=== PATIENT | female | born 1980 | race African-American/Black ===

== ENCOUNTER 2017-10-12 02:23 | Emergency (ER) | payer SELFPAY ==
[~2017-10-12] VITALS: Ht 167.6 cm; Wt 62.0 kg
[2017-10-12] MEDS ORDERED: IBUPROFEN 600MG TABLET PO ONE (07:30)
[2017-10-12 09:58] VITALS: BP 160/110
== END 2017-10-12 10:15 | disposition home or self-care (01) ==
LOC: ER 02:23
DX: J02.8 Acute pharyngitis due to other specified organisms (principal); B97.89 Other viral agents as the cause of diseases classified elsewhere; R59.1 Generalized enlarged lymph nodes; Z98.890 Other specified postprocedural states
CPT/HCPCS: 81025; 87430; 99283

== ENCOUNTER 2018-12-05 02:57 | Inpatient (IN) | payer MEDICAID ==
[~2018-12-05] VITALS: Ht 152.4 cm; Wt 63.5 kg
[2018-12-05] MEDS ORDERED: FUROSEMIDE 40MG/4ML VIAL IV ONE (03:45)
[2018-12-05 03:54] LABS: BASOPHILS % 2.2 % (0.0-2.0); EOSINOPHILS % 0.7 % (0.0-5.0); HEMATOCRIT. 33.8 % (36.0-48.0); HEMOGLOBIN. 10.2 g/dL (12.0-16.0); LYMPHOCYTES % 8.5 % (20.0-50.0); MEAN CORPUSCULAR HEMOGLOBIN 17.9 pg (28.0-32.0); MEAN CORPUSCULAR VOLUME 59.1 fL (81.0-99.0); MEAN PLATELET VOLUME 8.6 fl (7.4-10.4); MONOCYTES % 8.7 % (2.0-8.0); NEUTROPHILS % 79.9 % (40.0-76.0); PLATELET 292 x1000/uL (130-400); RED BLOOD CELL COUNT 5.72 mill/uL (4.2-5.4); RED CELL DISTRIBUTION WIDTH 22.8 % (11.6-14.6)
[2018-12-05 04:00] LABS: CHLORIDE 104 mEq/L (98-107)
[2018-12-05 05:25] LABS: PLATELET ESTIMATE NORMAL
[2018-12-05] MEDS ORDERED: LABETALOL 5MG/ML SYR 20 MG/4 ML SYRINGE IV NR (05:30)
[2018-12-05 08:20] VITALS: BP 177/131
[2018-12-05] MEDS ORDERED: ENOXAPARIN 40MG/0.4ML SYR SUBCUT SCH (09:30)
[2018-12-05] MEDS ORDERED: IPRATROPIUM/ALBUTEROL 0.5-3(2.5)MG/3ML NEB ONE (09:57)
[2018-12-05] MEDS ORDERED: ENOXAPARIN 30MG/0.3ML SYR SUBCUT SCH (10:00)
[2018-12-05] MEDS: IPRATROPIUM/ALBUTEROL 0.5-3(2.5)MG/3ML NEB HHN SCH ×3 (10:02→20:36)
[2018-12-05] MEDS ORDERED: GUAIFENESIN 200MG/10ML SUGAR FREE UDC PO PRN (10:15)
[2018-12-05] MEDS ORDERED: ACETAMINOPHEN 325MG TABLET PO PRN (10:15)
[2018-12-05] MEDS ORDERED: DIPHENHYDRAMINE 50MG/ML VIAL IV PRN (10:15)
[2018-12-05] MEDS ORDERED: CLONIDINE 0.1MG TABLET PO PRN (10:15)
[2018-12-05] MEDS ORDERED: IPRATROPIUM/ALBUTEROL 0.5-3(2.5)MG/3ML NEB INH PRN (10:15)
[2018-12-05] MEDS ORDERED: ONDANSETRON HCL 4MG/2ML INJ IV PRN (10:15)
[2018-12-05] MEDS ORDERED: MAGNESIUM/ALUMINUM HYDROXIDE/SIMETHICONE 30ML UDC PO PRN (10:15)
[2018-12-05] MEDS: HYDRALAZINE 20MG/ML VIAL IV PRN ×3 (10:19→13:28)
[2018-12-05] MEDS: LOSARTAN POTASSIUM 100 MG TABLET PO SCH (10:20)
[2018-12-05] MEDS: NIFEDIPINE XL 60MG TAB PO SCH (10:20)
[2018-12-05 11:46] LABS: *BARBITURATES SCREEN URINE NEGATIVE (NEGATIVE)
[2018-12-05 11:47] LABS: *AMPHETAMINES SCREEN URINE NEGATIVE (NEGATIVE); *BENZODIAZEPINES SCREEN URINE NEGATIVE (NEGATIVE); METHADONE URINE SCREEN NEGATIVE (NEGATIVE); OPIATES URINE SCREEN NEGATIVE (NEGATIVE); PHENCYCLIDINE URINE SCREEN NEGATIVE (NEGATIVE)
[2018-12-05 12:05] LABS: *COCAINE SCREEN URINE PRESUMTIVE POSITIVE (NEGATIVE); CANNABINOID URINE SCREEN PRESUMTIVE POSITIVE (NEGATIVE)
[2018-12-05 12:12] VITALS: BP 185/124
[2018-12-05 12:34] LABS: BG CARBOXYHEMOGLOBIN 1.4 % (0.5-1.5); BG DEOXYHEMOGLOBIN 3.2 % (0.0-5.0); BG FRACTION INSPIRED OXYGEN 28; BG HCO3 ACT 29.1 mmol/L (22.0-26.0); BG METHEMOGLOBIN 0.3 % (0.0-1.5); BG OXYGEN SATURATION 96.7 % (92.0-98.5); BG OXYHEMOGLOBIN 95.1 % (94.0-97.0); BG PCO2 36.4 mmHg (35.0-45.0); BG PO2 88.5 mmHg (75.0-100.0); BG SAMPLE SITE RIGHT RADIAL; BG TOTAL HEMOGLOBIN 11.7 g/dL (12.0-18.0); BG VENT MODE NASAL CANNULA
[2018-12-05] MEDS ORDERED: POTASSIUM CHLORIDE 20MEQ/PACKET PO NR (12:45)
[2018-12-05] MEDS: SODIUM CHLORIDE 0.9% INJ 3ML FLUSH IVF SCH ×2 (13:29→23:22)
[2018-12-05 14:00] VITALS: BP 139/87
[2018-12-05] MEDS: HYDRALAZINE HCL 50MG TABLET PO SCH ×2 (14:00→23:16)
[2018-12-05] MEDS ORDERED: POTASSIUM CHLORIDE INJ 40 MEQ in DEXT 5% WATER 250 ML IV SCH (15:00)
[2018-12-05 15:47] LABS: CHLORIDE 99 mEq/L (98-107)
[2018-12-05 15:56] LABS: T4 FREE 1.12 ng/dL (0.76-1.46)
[2018-12-05 16:00] VITALS: BP 129/83
[2018-12-05] MEDS: FUROSEMIDE 40MG/4ML VIAL IVP SCH (17:43)
[2018-12-05 18:00] VITALS: BP 144/84
[2018-12-05 20:00] VITALS: BP 137/86
[2018-12-05] MEDS ORDERED: POTASSIUM CHLORIDE INJ 40 MEQ in DEXT 5% WATER 250 ML IV NR (20:30)
[2018-12-05] MEDS ORDERED: MAGNESIUM SULFATE 3 GM in DEXT 5% WATER 96 ML IV NR (21:00)
[2018-12-05] MEDS ORDERED: IBUPROFEN 800MG TABLET PO PRN (23:15)
[2018-12-06] VITALS (8 sets, daily range): BP systolic 145–178; BP diastolic 73–122
[2018-12-06] MEDS ORDERED: POTASSIUM CHLORIDE 20MEQ TABLET SR PO NR
[2018-12-06] MEDS: IPRATROPIUM/ALBUTEROL 0.5-3(2.5)MG/3ML NEB HHN SCH ×6 (00:50→20:30)
[2018-12-06 06:56] LABS: HEMATOCRIT. 35.9 % (36.0-48.0); HEMOGLOBIN. 10.9 g/dL (12.0-16.0); MEAN CORPUSCULAR HEMOGLOBIN 17.7 pg (28.0-32.0); MEAN CORPUSCULAR VOLUME 58.4 fL (81.0-99.0); MEAN PLATELET VOLUME 8.8 fl (7.4-10.4); PLATELET 285 x1000/uL (130-400); RED BLOOD CELL COUNT 6.15 mill/uL (4.2-5.4); RED CELL DISTRIBUTION WIDTH 23.1 % (11.6-14.6)
[2018-12-06] MEDS: HYDRALAZINE HCL 50MG TABLET PO SCH ×3 (07:17→20:48)
[2018-12-06] MEDS: SODIUM CHLORIDE 0.9% INJ 3ML FLUSH IVF SCH ×3 (07:19→20:48)
[2018-12-06 08:00] LABS: PHOSPHORUS 2.4 mg/dL (2.5-4.9)
[2018-12-06] MEDS: ENOXAPARIN 40MG/0.4ML SYR SUBCUT SCH (10:08)
[2018-12-06] MEDS: LOSARTAN POTASSIUM 100 MG TABLET PO SCH (10:10)
[2018-12-06] MEDS: FAMOTIDINE 20MG TABLET PO SCH (10:10)
[2018-12-06] MEDS: NIFEDIPINE XL 60MG TAB PO SCH (10:10)
[2018-12-06] MEDS: FUROSEMIDE 40MG/4ML VIAL IVP SCH ×2 (10:11→16:05)
[2018-12-06 10:20] LABS: T4 FREE 1.08 ng/dL (0.76-1.46)
[2018-12-06] MEDS: CLONIDINE 0.2MG TABLET PO PRN (10:27)
[2018-12-06] MEDS: HYDRALAZINE 20MG/ML VIAL IV PRN (11:17)
[2018-12-06 13:19] LABS: PLATELET ESTIMATE NORMAL
[2018-12-06 17:19] LABS: CREATINE KINASE MB FRACTION 6.2 ng/mL (0.5-3.6)
[2018-12-06] MEDS: POTASSIUM CHLORIDE 20MEQ TABLET SR PO SCH (17:35)
[2018-12-06] MEDS: NICOTINE 21MG PATCH TD SCH (20:48)
[2018-12-06 23:53] LABS: CREATINE KINASE MB FRACTION 5.7 ng/mL (0.5-3.6)
[2018-12-07] VITALS (13 sets, daily range): BP systolic 118–165; BP diastolic 81–106
[2018-12-07] MEDS: IPRATROPIUM/ALBUTEROL 0.5-3(2.5)MG/3ML NEB HHN SCH ×4 (00:33→11:32)
[2018-12-07] MEDS ORDERED: IOHEXOL-350 100 ML BOTTLE ONE (03:43)
[2018-12-07] MEDS: SODIUM CHLORIDE 0.9% INJ 3ML FLUSH IVF SCH ×3 (06:11→21:30)
[2018-12-07] MEDS: HYDRALAZINE HCL 50MG TABLET PO SCH (06:20)
[2018-12-07 07:25] LABS: CREATINE KINASE MB FRACTION 5.7 ng/mL (0.5-3.6)
[2018-12-07] MEDS: LOSARTAN POTASSIUM 100 MG TABLET PO SCH (08:20)
[2018-12-07] MEDS: FUROSEMIDE 40MG/4ML VIAL IVP SCH ×2 (08:20→17:36)
[2018-12-07] MEDS: FAMOTIDINE 20MG TABLET PO SCH (08:29)
[2018-12-07] MEDS: NIFEDIPINE XL 60MG TAB PO SCH (08:29)
[2018-12-07] MEDS: NICOTINE 21MG PATCH TD SCH (08:30)
[2018-12-07] MEDS: ENOXAPARIN 40MG/0.4ML SYR SUBCUT SCH (08:30)
[2018-12-07] MEDS: POTASSIUM CHLORIDE 20MEQ TABLET SR PO SCH (08:34)
[2018-12-07] MEDS: CLONIDINE 0.2MG TABLET PO PRN ×2 (11:14→17:46)
[2018-12-07] MEDS: HYDRALAZINE HCL 100MG TABLET PO SCH ×2 (15:05→21:30)
[2018-12-08] VITALS: BP 141/74
[2018-12-08 02:00] VITALS: BP 149/96
[2018-12-08 04:00] VITALS: BP 148/87
[2018-12-08] MEDS: SODIUM CHLORIDE 0.9% INJ 3ML FLUSH IVF SCH (05:56)
[2018-12-08 06:00] VITALS: BP 118/48
[2018-12-08] MEDS: HYDRALAZINE HCL 100MG TABLET PO SCH (06:09)
[2018-12-08 07:28] LABS: PHOSPHORUS 2.6 mg/dL (2.5-4.9)
[2018-12-08 08:00] VITALS: BP 151/102
[2018-12-08] MEDS: FUROSEMIDE 40MG/4ML VIAL IVP SCH (08:43)
[2018-12-08] MEDS: NIFEDIPINE XL 60MG TAB PO SCH (08:43)
[2018-12-08] MEDS: FAMOTIDINE 20MG TABLET PO SCH (08:44)
[2018-12-08] MEDS: LOSARTAN POTASSIUM 100 MG TABLET PO SCH (08:44)
[2018-12-08] MEDS: POTASSIUM CHLORIDE 20MEQ TABLET SR PO SCH (08:44)
[2018-12-08] MEDS: NICOTINE 21MG PATCH TD SCH (08:44)
[2018-12-08] MEDS: ENOXAPARIN 40MG/0.4ML SYR SUBCUT SCH (08:44)
== END 2018-12-08 10:15 | disposition left against medical advice (07) | DRG 469 ==
LOC: ER 02:57 → 8WST 05:29 → ENRESERV 07:04 → 5EST 12:48
PROVIDERS: ADMIT Internal Medicine; ATTEND Internal Medicine
DX: N17.9 Acute kidney failure, unspecified (principal); J96.90 Respiratory failure, unspecified, unspecified whether with hypoxia or hypercapnia; G93.41 Metabolic encephalopathy; I50.43 Acute on chronic combined systolic (congestive) and diastolic (congestive) heart failure; E46 Unspecified protein-calorie malnutrition; I42.9 Cardiomyopathy, unspecified; E83.42 Hypomagnesemia; I16.0 Hypertensive urgency; I13.0 Hypertensive heart and chronic kidney disease with heart failure and stage 1 through stage 4 chronic kidney disease, or unspecified chronic kidney disease; N18.9 Chronic kidney disease, unspecified; R74.8 Abnormal levels of other serum enzymes; R74.0 Nonspecific elevation of levels of transaminase and lactic acid dehydrogenase [LDH]; R94.5 Abnormal results of liver function studies; Z53.21 Procedure and treatment not carried out due to patient leaving prior to being seen by health care provider; D72.829 Elevated white blood cell count, unspecified; E87.6 Hypokalemia; F14.10 Cocaine abuse, uncomplicated; F17.200 Nicotine dependence, unspecified, uncomplicated; J44.9 Chronic obstructive pulmonary disease, unspecified; Z59.0 Homelessness; Z86.73 Personal history of transient ischemic attack (TIA), and cerebral infarction without residual deficits; Z68.27 Body mass index [BMI] 27.0-27.9, adult; Z71.51 Drug abuse counseling and surveillance of drug abuser
CPT/HCPCS: 36415; 36600; 71045; 76700; 80048; 80061; 80305; 82140; 82375; 82550; 82553; 82805; 82962; 83036; 83735; 83880; 84100; 84439; 84443; 84484; 85379; 93005; 93306; 93970; 94640; 96374; 96375; 99285; J0360; J1650; J1940; J2405; J3475; J3480; J3490; J7060; J7620; Q9967

== ENCOUNTER 2020-06-04 16:30 | Emergency (ER) | payer MEDICAID ==
[~2020-06-04] VITALS: Ht 162.6 cm; Wt 91.0 kg
[2020-06-04] MEDS ORDERED: FUROSEMIDE 20MG TABLET PO ONE (17:45)
[2020-06-04] MEDS ORDERED: ACETAMINOPHEN 325MG TABLET PO ONE (18:45)
[2020-06-04] MEDS ORDERED: CLONIDINE 0.1MG TABLET PO ONE (20:30)
[2020-06-04 22:42] VITALS: BP 175/100
== END 2020-06-04 22:44 | disposition home or self-care (01) ==
LOC: ER 16:30
DX: I11.0 Hypertensive heart disease with heart failure (principal); I50.9 Heart failure, unspecified; F14.10 Cocaine abuse, uncomplicated; F12.90 Cannabis use, unspecified, uncomplicated
CPT/HCPCS: 99284